=== PATIENT | female | born 1945 | race Caucasian/White ===

== ENCOUNTER → 2017-04-02 | Outpatient (CLI) | payer MEDICARE, BC ==
[~2017-04-02] MED LIST: ASPIRIN EC81 MG PO; COZAAR50 MG PO; K-TAB ER20 MEQ PO; LASIX20 MG PO; LEXAPRO10 MG PO; MUCOMYST 20200 MG/M1 PO; PRILOSEC OTC20 MG PO; SINGULAIR10 MG PO; TYLENOL EXTRA500 MG PO; VITAMIN D-32000 UNI1 PO
[2017-04-02 10:57] LABS: CREATININE 1.3 mg/dL (0.5-1.1)
== END | disposition disaster alternative care site (69) ==
LOC: GLAB 09:30 → GRAD 10:30
PROVIDERS: Urology
DX: Z85.528 Personal history of other malignant neoplasm of kidney (principal)

== ENCOUNTER → 2017-04-12 | Outpatient (CLI) | payer MEDICARE, BC | END | disposition disaster alternative care site (69) | LOC: GOPD 04-10 → GRAD 08:25 → GOPD 09:00 | DX: C64.1 Malignant neoplasm of right kidney, except renal pelvis (principal); D35.02 Benign neoplasm of left adrenal gland; K76.0 Fatty (change of) liver, not elsewhere classified; K44.9 Diaphragmatic hernia without obstruction or gangrene; J98.4 Other disorders of lung; Z90.49 Acquired absence of other specified parts of digestive tract; Z90.5 Acquired absence of kidney | CPT/HCPCS: J2001; J7030; Q9967 ==